=== PATIENT | male | born 1965 | race Caucasian/White ===

== ENCOUNTER 2021-10-05 07:55 | Emergency (ER) | payer BC ==
[~2021-10-05] VITALS: Ht 180.3 cm; Wt 79.4 kg
--- NOTE | 2021-10-05 07:55 | NUR ---
PT BIBRA 89 WITH RIGHT FLANK PAIN, ONSET 3 HR AGO. PT ARRIVED WITH AN IV LAC. WAS AT THE [facility]. LABS WERE DRAWN AND MEDICATION WAS GIVEN. WILL CONTINUE TO MONITOR.
[2021-10-05] MEDS ORDERED: HYDROMORPHONE 1 MG/1 ML DISP.SYRIN ONE ×2 (08:10→09:28)
[2021-10-05] MEDS ORDERED: KETOROLAC TROMETHAMINE 15 MG/ML VIAL ONE ×2 (08:10→10:10)
[2021-10-05] MEDS ORDERED: ONDANSETRON HCL/PF 4 MG/2 ML VIAL ONE (08:11)
[2021-10-05 08:22] LABS: BASOPHILS % (AUTO) 0.4 % (0.0-2.0); EOSINOPHILS % (AUTO) 0.5 % (0.0-6.0); HEMATOCRIT 48 % (39-51); LYMPHOCYTES # (AUTO) 2.2 K/uL (0.8-4.8); LYMPHOCYTES % (AUTO) 26.5 % (20.0-44.0); MEAN CORPUSCULAR HGB CONC 33 g/dl (31.0-36.0); MEAN CORPUSCULAR VOLUME 85 fL (80-96); MONOCYTES # (AUTO) 0.5 K/uL (0.1-1.30); MONOCYTES % (AUTO) 6.4 % (2.0-12.0); NEUTROPHILS # (AUTO) 5.4 K/uL (1.8-8.9); NEUTROPHILS % (AUTO) 66.2 % (43.0-81.0); PLATELET COUNT (AUTO) 247 K/uL (150-450); RED BLOOD CELL COUNT(AUTO) 5.66 MIL/uL (4.5-6.0); WHITE BLOOD COUNT (AUTO) 8.2 K/uL (4.3-11.0)
[2021-10-05] MEDS ORDERED: ONDANSETRON HCL/PF 4 MG/2 ML VIAL IVP ONE (08:30)
[2021-10-05] MEDS ORDERED: IV NS 0.9% 1,000 ML BAG IV ONE (08:30)
[2021-10-05] MEDS ORDERED: KETOROLAC TROMETHAMINE INJ 30 MG/ML VIAL IV ONE ×2 (08:30→10:30)
[2021-10-05] MEDS ORDERED: HYDROMORPHONE INJ 2 MG/ML DISP.SYRIN IV ONE ×2 (08:30→09:30)
[2021-10-05 08:34] LABS: CALCIUM, SERUM 8.7 mg/dL (8.5-10.1); CREATININE 1.4 mg/dL (0.6-1.3); POTASSIUM 3.6 mmol/L (3.5-5.1)
[2021-10-05 08:41] LABS: ALBUMIN 4.2 g/dL (3.4-5.0); BILIRUBIN,DIRECT 0.2 mg/dL (0.0-0.2); TOTAL PROTEIN, SERUM 7.1 g/dL (6.4-8.2)
[2021-10-05] MEDS ORDERED: TAMS-12 PO (09:29)
[2021-10-05] MEDS ORDERED: HYDR-3980 PO (09:29)
[2021-10-05 10:25] VITALS: BP 142/84
== END 2021-10-05 10:26 | disposition home or self-care (01) ==
LOC: ER 08:26
DX: N20.0 Calculus of kidney (principal); K85.90 Acute pancreatitis without necrosis or infection, unspecified
CPT/HCPCS: 74176; 80048; 80076; 83690; 85025; 96374; 96375; 96376; 99284; J1170 ×2; J1885 ×2; J2405; J7030; 36415